=== PATIENT | male | born 1980 | race African-American/Black ===

== ENCOUNTER 2017-07-06 11:07 | Emergency (ER) | payer OTHER ==
[~2017-07-06] VITALS: Ht 182.9 cm; Wt 109.2 kg
[2017-07-06 11:49] LABS: HEMATOCRIT 45.7 % (38.0-50.0); HEMOGLOBIN 14.9 G/DL (12.5-16.6); MCH 27.7 PG (29.0-34.0); MCHC 32.6 G/DL (30.0-36.0); MCV 84.9 FL (86-99); PLATELET COUNT 285 K/uL (156-360); RBC DIS.WIDTH-CV 12.3 % (11.8-14.6); RBC DIS.WIDTH-SD 37.6 % (39-53); RED BLOOD COUNT 5.38 M/uL (4.00-5.50); WHITE BLOOD COUNT 5.2 K/uL (4.1-10.2)
[2017-07-06 12:01] LABS: ALBUMIN 4.3 g/dL (3.2-4.8); CHLORIDE 106 mEq/L (99-109); POTASSIUM 4.4 mEq/L (3.7-5.4); SODIUM 143 mEq/L (136-147)
[2017-07-06 12:03] LABS: GLUCOSE 92 mg/dL (70-99); TOTAL PROTEIN 6.7 g/dL (6.4-8.3)
[2017-07-06 12:05] LABS: TOTAL BILIRUBIN 0.4 mg/dL (0.0-1.0)
[2017-07-06 12:06] LABS: ALKALINE PHOSPHATASE 70 IU/L (3-129)
[2017-07-06 12:07] LABS: CREATININE 1.1 mg/dL (0.6-1.3); GFR ESTIMATE (CALCULATED) > 59 mL/min/ (58.99-99999)
[2017-07-06 12:08] LABS: AST (GOT) 53 IU/L (2-34); UREA NITROGEN (BUN) 6 mg/dL (9-23)
[2017-07-06 12:10] LABS: ALT (GPT) 266 IU/L (3-49)
[2017-07-06 13:02] LABS: APPEARANCE CLEAR ((CLEAR)); BILIRUBIN NEGATIVE; BLOOD SMALL; COLOR YELLOW ((YELLOW)); GLUCOSE (STRIP) NEGATIVE; KETONES NEGATIVE; LEUKOCYTES NEGATIVE; NITRITE NEGATIVE; PROTEIN (STRIP) NEGATIVE; SPECIFIC GRAVITY 1.019 (1.000-1.030); UROBILINOGEN 0.2 MG/DL (0.2-1.0)
[2017-07-06 13:06] LABS: BACTERIA NONE SEEN /HPF; EPITHELIAL CELLS RARE /HPF; MUCUS TRACE /LPF; RED BLOOD CELLS 0-5 /HPF (0-5); UCUL ADDED? NO; WHITE BLOOD CELLS 0-5 /HPF (0-5)
[2017-07-06 15:58] VITALS: BP 150/90
== END 2017-07-06 16:21 | disposition home or self-care (01) ==
LOC: EME 11:07
DX: R35.0 Frequency of micturition (principal); R79.89 Other specified abnormal findings of blood chemistry; M54.9 Dorsalgia, unspecified; R10.9 Unspecified abdominal pain; E78.5 Hyperlipidemia, unspecified; F17.200 Nicotine dependence, unspecified, uncomplicated
CPT/HCPCS: 74176; 80053; 81003; 82948; 85027; 99281; 99285

== ENCOUNTER 2018-01-20 13:42 | Emergency (ER) | payer OTHER ==
[~2018-01-20] VITALS: Ht 180.3 cm; Wt 109.7 kg
[2018-01-20 14:20] LABS: HEMATOCRIT 44.6 % (38.0-50.0); HEMOGLOBIN 14.8 G/DL (12.5-16.6); MCHC 33.2 G/DL (30.0-36.0); MCV 84.5 FL (86-99); PLATELET COUNT 322 K/uL (156-360); RBC DIS.WIDTH-CV 12.2 % (11.8-14.6); RBC DIS.WIDTH-SD 37.1 % (39-53); RED BLOOD COUNT 5.28 M/uL (4.00-5.50); WHITE BLOOD COUNT 6.7 K/uL (4.1-10.2)
[2018-01-20 14:30] LABS: CHLORIDE 106 mEq/L (99-109); POTASSIUM 4.1 mEq/L (3.7-5.4); SODIUM 140 mEq/L (136-147)
[2018-01-20 14:31] LABS: GLUCOSE 108 mg/dL (70-99)
[2018-01-20 14:35] LABS: CREATININE 1.3 mg/dL (0.6-1.3); GFR ESTIMATE (CALCULATED) > 59 mL/min/ (58.99-99999)
[2018-01-20 14:36] LABS: UREA NITROGEN (BUN) 10 mg/dL (9-23)
[2018-01-20 14:41] LABS: TROP-I INTERPRETATION NEGATIVE; TROPONIN-I < 0.01 ng/mL (0.0-0.30)
[2018-01-20] MEDS ORDERED: MOBIC7.5 MG PO (15:41)
[2018-01-20 16:15] VITALS: BP 132/85
== END 2018-01-20 16:16 | disposition home or self-care (01) ==
LOC: EME 13:42
DX: R07.89 Other chest pain (principal); F17.210 Nicotine dependence, cigarettes, uncomplicated; F10.99 Alcohol use, unspecified with unspecified alcohol-induced disorder; R19.7 Diarrhea, unspecified; M54.9 Dorsalgia, unspecified
CPT/HCPCS: 71046; 80048; 84484; 85027; 93005; 94640; 99281; 99284